=== PATIENT | female | born 1970 | race Hispanic/Latino ===

== ENCOUNTER → 2018-07-30 | Outpatient (CLI) | payer MEDICAID ==
[~2018-07-30] MED LIST: ESOM40CA PO; MULT-1296 PO
== END | disposition home or self-care (01) ==
LOC: DTH 09:51
PROVIDERS: ATTEND Surgery
DX: E66.01 Morbid (severe) obesity due to excess calories (principal); E11.9 Type 2 diabetes mellitus without complications
CPT/HCPCS: 97802

== ENCOUNTER 2018-08-09 09:00 | Inpatient (IN) | payer MEDICAID ==
[~2018-08-09] VITALS: Ht 161.3 cm; Wt 91.2 kg
[2018-08-09 09:32] LABS: BASOPHILS % (AUTO) 0.6 % (0.0-5.0); EOSINOPHILS % (AUTO) 1.5 % (0.0-8.0); HEMATOCRIT 38.5 % (36-48); LYMPHOCYTES % (AUTO) 33.3 % (21.0-51.0); MEAN CORPUSCULAR HEMOGLOBIN 30.4 pg (27.0-33.0); MEAN CORPUSCULAR HGB CONC 34.2 g/dL (32.0-36.0); MEAN CORPUSCULAR VOLUME 88.7 fL (79-99); MONOCYTES % (AUTO) 5.3 % (3.0-13.0); NEUTROPHILS % (AUTO) 59.3 % (40.0-77.0); NUCLEATED RED BLOOD CELLS 0.1 % (0.0-0.19); PLATELET COUNT (AUTO) 336 K/uL (130-400); RED BLOOD CELL COUNT(AUTO) 4.33 MIL/uL (4.00-5.50); RED CELL DISTRIBUTION WIDTH 13.6 % (11.0-15.5); WHITE BLOOD COUNT (AUTO) 7.2 K/uL (4.8-10.8)
[2018-08-09 09:43] VITALS: BP 118/65
[2018-08-09 09:54] LABS: PARTIAL THROMBOPLASTIN TIME 27.5 SEC (26.3-35.5); PROTHROMBIN TIME 10.5 SEC (9.6-11.6)
[2018-08-09 10:05] LABS: CREATININE 0.8 mg/dL (0.5-1.5); POTASSIUM 4.6 mmol/L (3.5-5.1)
[2018-08-09] MEDS ORDERED: BUSP15TA3 PO (10:09)
[2018-08-10] MEDS: CEFAZOLIN SODIUM 1 GM VIAL IVP SCH (11:45)
[2018-08-11] MEDS: CEFAZOLIN SODIUM 1 GM VIAL IVP SCH (11:45)
[2018-08-12] VITALS (21 sets, daily range): BP systolic 99–144; BP diastolic 55–77
[2018-08-12] MEDS ORDERED: SODIUM CHLORIDE 0.9% 1000ML 1,000 ML IV ONE (09:05)
[2018-08-12] MEDS: CEFAZOLIN SODIUM 1 GM VIAL IVP SCH ×3 (09:27→11:45)
[2018-08-12] MEDS ORDERED: PROPOFOL 10 MG/ML 20ML VIAL IV ONE (09:57)
[2018-08-12] MEDS ORDERED: SUCCINYLCHOLINE CHLORIDE 20 MG/ML 10 ML VIAL ONE (09:57)
[2018-08-12] MEDS ORDERED: LIDOCAINE PF 2% 5ML ABBOJECT ONE (09:57)
[2018-08-12] MEDS ORDERED: ROCURONIUM 10MG/1ML SYR 10 MG/ML ML ONE (09:58)
[2018-08-12] MEDS ORDERED: MIDAZOLAM HCL 1 MG/ML 2ML VIAL ONE (09:58)
[2018-08-12] MEDS ORDERED: FENTANYL CITRATE PF 50 MCG/1 ML 5ML AMP IV ONE (09:58)
[2018-08-12] MEDS ORDERED: BUPIVACAINE/PF 0.5% 30ML VIAL ONE (10:28)
[2018-08-12] MEDS ORDERED: EPHEDRINE SULFATE 50 MG/ML AMPULE ONE (10:44)
[2018-08-12] MEDS ORDERED: GLYCOPYRROLATE 1 MG/5 ML SYRINGE ONE (11:55)
[2018-08-12] MEDS ORDERED: NEOSTIGMINE 5MG/5ML SYR IV ONE (11:55)
[2018-08-12] MEDS ORDERED: ONDANSETRON HCL 4 MG/2 ML VIAL ONE ×2 (11:56→12:43)
[2018-08-12] MEDS ORDERED: FENTANYL CITRATE PF 50 MCG/1 ML 2ML VIAL ONE (12:07)
[2018-08-12] MEDS ORDERED: ONDANSETRON HCL 4 MG/2 ML VIAL IVP PRN (12:15)
[2018-08-12] MEDS ORDERED: MORPHINE SULFATE 5 MG/ML VIAL IVP PRN (12:15)
[2018-08-12] MEDS ORDERED: KETOROLAC TROMETHAMINE 30MG/ML ONE (12:17)
[2018-08-12] MEDS ORDERED: MEPERIDINE-PF 25 MG/ML SYG ONE (12:47)
[2018-08-12] MEDS ORDERED: LORAZEPAM 2 MG/ML 1 ML VIAL IVP ONE (14:30)
[2018-08-12] MEDS ORDERED: METOCLOPRAMIDE 10 MG/2 ML VIAL IVP PRN (14:30)
[2018-08-12] MEDS ORDERED: METOCLOPRAMIDE 10 MG/2 ML VIAL ONE (14:33)
[2018-08-12] MEDS ORDERED: LORAZEPAM 2 MG/ML 1 ML VIAL ONE (14:34)
[2018-08-12] MEDS: KETOROLAC TROMETHAMINE 30MG/ML IV PRN ×2 (14:55→21:25)
[2018-08-12] MEDS: LACTATED RINGERS 1000ML 1,000 ML IV SCH ×2 (17:50→20:04)
[2018-08-12] MEDS ORDERED: MORPHINE SULFATE 2 MG/ML 1ML SYG IVP PRN (17:59)
[2018-08-12] MEDS ORDERED: PHARMACY COMMUNICATION MISC SCH (19:15)
[2018-08-12] MEDS: FAMOTIDINE/PF 20 MG/2 ML VIAL IV SCH (20:50)
[2018-08-12] MEDS: ENOXAPARIN SODIUM 30 MG/0.3 ML SQ SCH (20:51)
[2018-08-13] MEDS ORDERED: LORAZEPAM 2 MG/ML 1 ML VIAL ONE (01:29)
[2018-08-13] MEDS ORDERED: LORAZEPAM 2 MG/ML 1 ML VIAL IVP ONE (01:30)
[2018-08-13] MEDS: LACTATED RINGERS 1000ML 1,000 ML IV SCH ×2 (03:19→12:05)
[2018-08-13 04:01] VITALS: BP 146/67
[2018-08-13 04:39] LABS: BASOPHILS % (AUTO) 0.6 % (0.0-5.0); HEMATOCRIT 34.3 % (36-48); MEAN CORPUSCULAR HEMOGLOBIN 29.7 pg (27.0-33.0); MEAN CORPUSCULAR HGB CONC 33.6 g/dL (32.0-36.0); MEAN CORPUSCULAR VOLUME 88.5 fL (79-99); MONOCYTES % (AUTO) 4.6 % (3.0-13.0); NEUTROPHILS % (AUTO) 79.8 % (40.0-77.0); PLATELET COUNT (AUTO) 331 K/uL (130-400); RED BLOOD CELL COUNT(AUTO) 3.88 MIL/uL (4.00-5.50); RED CELL DISTRIBUTION WIDTH 13.6 % (11.0-15.5); WHITE BLOOD COUNT (AUTO) 14.5 K/uL (4.8-10.8)
[2018-08-13 04:59] LABS: CREATININE 0.7 mg/dL (0.5-1.5); POTASSIUM 3.6 mmol/L (3.5-5.1)
[2018-08-13] MEDS ORDERED: METHYLENE BLUE 10 MG/ML AMP IJ SCH (06:00)
[2018-08-13 08:00] VITALS: BP 120/78
[2018-08-13] MEDS: FAMOTIDINE/PF 20 MG/2 ML VIAL IV SCH (09:32)
[2018-08-13] MEDS: KETOROLAC TROMETHAMINE 30MG/ML IV PRN ×2 (09:33→14:10)
[2018-08-13] MEDS: ENOXAPARIN SODIUM 30 MG/0.3 ML SQ SCH (09:43)
[2018-08-13 11:51] VITALS: BP 126/81
[2018-08-13 16:41] VITALS: BP 117/69
== END 2018-08-13 18:51 | disposition home or self-care (01) | DRG 403 ==
LOC: DAHIP 08-12 07:47 → 4BH 08-12 13:15
PROVIDERS: ADMIT Surgery; ATTEND Surgery
PROC: 0DJ08ZZ Inspection of Upper Intestinal Tract, Via Natural or Artificial Opening Endoscopic (ICD-10-PCS; 2018-08-12)
PROC: 0D164ZA Bypass Stomach to Jejunum, Percutaneous Endoscopic Approach (ICD-10-PCS; principal; 2018-08-12 10:13)
PROC: 0D1A4ZA Bypass Jejunum to Jejunum, Percutaneous Endoscopic Approach (ICD-10-PCS; 2018-08-12 10:13)
DX: E66.01 Morbid (severe) obesity due to excess calories (principal); E10.9 Type 1 diabetes mellitus without complications; K21.9 Gastro-esophageal reflux disease without esophagitis; F41.9 Anxiety disorder, unspecified; Z68.35 Body mass index [BMI] 35.0-35.9, adult; Z82.49 Family history of ischemic heart disease and other diseases of the circulatory system; Z84.89 Family history of other specified conditions
CPT/HCPCS: 36415; 43235; 80048; 82948; 84702; 85025; 85610; 85730; 86850; 86900; 86901; 94760; A4606; J0330; J0690; J1650; J1885; J2001; J2060; J2175; J2250; J2270; J2405; J2704; J2710; J2765; J3010; J3490; J7030; J7120; Q9968

== ENCOUNTER 2018-08-19 14:45 | Observation (INO) | payer MEDICAID ==
[~2018-08-19] VITALS: Ht 160 cm; Wt 84.4 kg
[~2018-08-19 14:45] MED LIST changes: +BUSP15TA3 PO
[2018-08-19 15:50] LABS: BASOPHILS % (AUTO) 0.7 % (0.0-5.0); EOSINOPHILS % (AUTO) 0.9 % (0.0-8.0); HEMATOCRIT 43.6 % (36-48); LYMPHOCYTES % (AUTO) 22.6 % (21.0-51.0); MEAN CORPUSCULAR HEMOGLOBIN 30.2 pg (27.0-33.0); MEAN CORPUSCULAR HGB CONC 34.4 g/dL (32.0-36.0); MEAN CORPUSCULAR VOLUME 87.8 fL (79-99); MONOCYTES % (AUTO) 5.4 % (3.0-13.0); NEUTROPHILS % (AUTO) 70.4 % (40.0-77.0); NUCLEATED RED BLOOD CELLS 0.1 % (0.0-0.19); PLATELET COUNT (AUTO) 510 K/uL (130-400); RED BLOOD CELL COUNT(AUTO) 4.97 MIL/uL (4.00-5.50); RED CELL DISTRIBUTION WIDTH 14.1 % (11.0-15.5); WHITE BLOOD COUNT (AUTO) 11.6 K/uL (4.8-10.8)
[2018-08-19] MEDS ORDERED: SODIUM CHLORIDE 0.9% 1000ML 1,000 ML IV ONE ×2 (15:55→18:11)
[2018-08-19] MEDS ORDERED: MORPHINE SULFATE 4 MG/1ML SYG ONE (15:55)
[2018-08-19] MEDS ORDERED: ONDANSETRON HCL 4 MG/2 ML VIAL ONE (15:55)
[2018-08-19 16:06] LABS: CREATININE 0.8 mg/dL (0.5-1.5); POTASSIUM 4.1 mmol/L (3.5-5.1)
[2018-08-19] MEDS ORDERED: IOHEXOL-350 75 ML VIAL IV ONE (16:06)
[2018-08-19 16:11] LABS: BILIRUBIN,TOTAL 0.6 mg/dL (0.2-1.0); TOTAL PROTEIN, SERUM 8.6 g/dL (6.0-8.3)
[2018-08-19 17:12] LABS: AMYLASE 71 U/L (25-115); LIPASE 423 U/L (114-286)
[2018-08-19] MEDS ORDERED: ACETAMINOPHEN 325 MG TAB PO PRN (19:00)
[2018-08-19] MEDS ORDERED: LACTULOSE 20 GM/30 ML UDCUP PO PRN (19:00)
[2018-08-19] MEDS: FAMOTIDINE/PF 20 MG/2 ML VIAL IV SCH (21:00)
[2018-08-19] MEDS ORDERED: FAMOTIDINE/PF 20 MG/2 ML VIAL IV ONE (21:02)
[2018-08-20 00:35] VITALS: BP 123/81
[2018-08-20] MEDS: SODIUM CHLORIDE 0.9% 1000ML 1,000 ML IV SCH ×5 (01:07→20:03)
[2018-08-20] MEDS: ONDANSETRON HCL 4 MG/2 ML VIAL IV PRN ×2 (01:11→11:48)
[2018-08-20 04:00] VITALS: BP 111/65
[2018-08-20 05:24] LABS: BASOPHILS % (AUTO) 0.5 % (0.0-5.0); EOSINOPHILS % (AUTO) 1.9 % (0.0-8.0); HEMATOCRIT 35.8 % (36-48); LYMPHOCYTES % (AUTO) 27.2 % (21.0-51.0); MEAN CORPUSCULAR HEMOGLOBIN 30.1 pg (27.0-33.0); MEAN CORPUSCULAR HGB CONC 33.9 g/dL (32.0-36.0); MEAN CORPUSCULAR VOLUME 88.8 fL (79-99); MONOCYTES % (AUTO) 6.2 % (3.0-13.0); NEUTROPHILS % (AUTO) 64.2 % (40.0-77.0); PLATELET COUNT (AUTO) 383 K/uL (130-400); RED BLOOD CELL COUNT(AUTO) 4.03 MIL/uL (4.00-5.50); RED CELL DISTRIBUTION WIDTH 13.6 % (11.0-15.5); WHITE BLOOD COUNT (AUTO) 9.1 K/uL (4.8-10.8)
[2018-08-20 05:39] LABS: ALBUMIN 2.9 g/dL (3.5-5.0); BILIRUBIN,TOTAL 0.5 mg/dL (0.2-1.0); CREATININE 0.7 mg/dL (0.5-1.5); CRP QUANTITATIVE 30.2 mg/L (0.00-9.0); POTASSIUM 3.6 mmol/L (3.5-5.1); TOTAL PROTEIN, SERUM 6.9 g/dL (6.0-8.3)
[2018-08-20] MEDS: MORPHINE SULFATE 4 MG/1ML SYG IV PRN ×3 (06:38→15:58)
[2018-08-20 06:47] LABS: APPEARANCE,URINE CLEAR (CLEAR); BILIRUBIN,URINE SMALL (NEGATIVE); COLOR,URINE YELLOW (YELLOW); GLUCOSE, URINE (UA) NEGATIVE (NEGATIVE); KETONES,URINE >=80 mg/dL (NEGATIVE); LEUKOCYTE ESTERASE ,URINE NEGATIVE (NEGATIVE); NITRATE,URINE NEGATIVE (NEGATIVE); OCCULT BLOOD,URINE NEGATIVE (NEGATIVE); PROTEIN,URINE 30 (NEGATIVE); UROBILINOGEN,URINE 0.2 mg/dL (0.2-1.0)
[2018-08-20 07:00] VITALS: BP 120/69
[2018-08-20 07:30] LABS: BACTERIA,URINE Few /HPF (None Seen); MUCUS,URINE Few LPF (None Seen); RBC,URINE 0-1 /HPF (0-1); SQUAMOUS EPITHELIAL CELL,UR Moderate /HPF (0-2); WBC,URINE 0-1 /HPF (0-1)
[2018-08-20] MEDS: FAMOTIDINE/PF 20 MG/2 ML VIAL IV SCH ×2 (10:20→20:03)
[2018-08-20 11:00] VITALS: BP 109/68
[2018-08-20] MEDS ORDERED: LEVOFLOXACIN 500 MG/D5W 100 ML 100 ML IV SCH (15:30)
[2018-08-20 16:00] VITALS: BP 106/64
[2018-08-20 20:00] VITALS: BP 106/63
[2018-08-21] VITALS: BP 116/69
[2018-08-21 04:00] VITALS: BP 121/68
[2018-08-21 05:25] LABS: MEAN CORPUSCULAR HEMOGLOBIN 30.1 pg (27.0-33.0); MEAN CORPUSCULAR HGB CONC 34.1 g/dL (32.0-36.0); MEAN CORPUSCULAR VOLUME 88.3 fL (79-99); PLATELET COUNT (AUTO) 321 K/uL (130-400); RED BLOOD CELL COUNT(AUTO) 3.74 MIL/uL (4.00-5.50); RED CELL DISTRIBUTION WIDTH 13.5 % (11.0-15.5); WHITE BLOOD COUNT (AUTO) 6.8 K/uL (4.8-10.8)
[2018-08-21 05:29] LABS: CREATININE 0.6 mg/dL (0.5-1.5); POTASSIUM 3.1 mmol/L (3.5-5.1)
[2018-08-21] MEDS ORDERED: POTASSIUM CHLORIDE 10% ELIXIR 20 MEQ/15 ML UDCUP PO PRN (06:00)
[2018-08-21] MEDS ORDERED: LIDOCAINE HCL-MPF 1% 2ML VIAL IVP PRN (06:00)
[2018-08-21] MEDS ORDERED: POTASSIUM CHLORIDE 10MEQ/100ML 100 ML IV PRN (06:00)
[2018-08-21] MEDS ORDERED: POTASSIUM CHLORIDE 20 MEQ ERTAB PO PRN (06:00)
[2018-08-21 08:00] VITALS: BP 114/70
[2018-08-21] MEDS ORDERED: PANTOPRAZOLE SODIUM 40 MG TABLET.DR PO SCH (09:00)
[2018-08-21] MEDS: FAMOTIDINE/PF 20 MG/2 ML VIAL IV SCH (10:32)
[2018-08-21] MEDS: ONDANSETRON HCL 4 MG/2 ML VIAL IV PRN (10:56)
[2018-08-21] MEDS ORDERED: LEVO500T2 PO (11:28)
[2018-08-21 11:45] VITALS: BP 110/77
[2018-08-21 12:08] VITALS: BP 110/72
== END 2018-08-21 16:35 | disposition home or self-care (01) ==
LOC: EDH 14:45 → EDHIP 14:46 → 3CH 08-20 00:35
PROVIDERS: ADMIT Hospitalist; ATTEND Hospitalist
DX: K52.9 Noninfective gastroenteritis and colitis, unspecified (principal); E66.9 Obesity, unspecified; D72.829 Elevated white blood cell count, unspecified; E11.9 Type 2 diabetes mellitus without complications; K76.0 Fatty (change of) liver, not elsewhere classified; Z90.710 Acquired absence of both cervix and uterus; Z98.84 Bariatric surgery status; Z82.0 Family history of epilepsy and other diseases of the nervous system; Z82.3 Family history of stroke; Z82.49 Family history of ischemic heart disease and other diseases of the circulatory system; Z82.5 Family history of asthma and other chronic lower respiratory diseases; Z83.3 Family history of diabetes mellitus
CPT/HCPCS: 36415 ×3; 74177; 80048; 80053 ×2; 81001; 82150; 82948 ×6; 83605; 83690; 85025 ×2; 85027; 86140; 96361 ×2; 96365; 96375 ×2; 96376 ×2; 99285; G0378 ×50; J1956; J2270 ×3; J2405 ×4; J3490 ×5; J7030 ×5; Q9967; 99291